=== PATIENT | male | born 2000 | race Two or more races ===

== ENCOUNTER 2023-05-01 19:03 | Emergency (ER) | payer OTHER ==
[~2023-05-01] VITALS: Ht 172.7 cm; Wt 95.5 kg
[2023-05-01 19:07] VITALS: TEMP 99
[2023-05-01] MEDS: IBUPROFEN 600 MG TABLET PO ONE (20:40)
[2023-05-01] MEDS: ACETAMINOPHEN 500 MG TABLET PO ONE (20:40)
[2023-05-01] MEDS ORDERED: ACET-3385 PO (20:41)
[2023-05-01] MEDS ORDERED: IBUP-1492 PO (20:41)
[2023-05-01 21:45] VITALS: BP 124/79; PULSE 73; RESP 20
== END 2023-05-01 21:55 | disposition home or self-care (01) ==
LOC: EMS 19:09
DX: S62.326A Displaced fracture of shaft of fifth metacarpal bone, right hand, initial encounter for closed fracture (principal); X58.XXXA Exposure to other specified factors, initial encounter; Y93.89 Activity, other specified; Y92.89 Other specified places as the place of occurrence of the external cause; Y99.8 Other external cause status
CPT/HCPCS: 99284; 73110-TC; 73130-TC; Z7502; Z7610

== ENCOUNTER 2023-05-10 23:18 | Emergency (ER) | payer OTHER ==
[~2023-05-10] VITALS: Ht 172.7 cm; Wt 105.0 kg
[~2023-05-10 23:18] MED LIST: ACET-3385 PO; IBUP-1492 PO
[2023-05-10 23:32] VITALS: BP 130/77; PULSE 71; RESP 18; TEMP 98.2
[2023-05-11] MEDS ORDERED: SULF-261 PO (00:07)
[2023-05-11] MEDS: SULFAMETHOX/TRIMETH DS 800-160 MG/TABLET PO ONE (00:12)
== END 2023-05-11 00:25 | disposition home or self-care (01) ==
LOC: EMS 23:19
DX: L03.114 Cellulitis of left upper limb (principal)
CPT/HCPCS: 99283

== ENCOUNTER 2023-05-29 08:19 | Emergency (ER) | payer OTHER ==
[~2023-05-29] VITALS: Ht 172.7 cm; Wt 97.7 kg
[~2023-05-29 08:19] MED LIST changes: +SULF-261 PO
[2023-05-29 08:23] VITALS: TEMP 98.4
[2023-05-29 09:38] VITALS: BP 128/79; PULSE 72; RESP 16
[2023-05-29] MEDS ORDERED: IBUP-1492 PO (09:43)
== END 2023-05-29 10:15 | disposition home or self-care (01) ==
LOC: EMS 08:22
DX: S62.614A Displaced fracture of proximal phalanx of right ring finger, initial encounter for closed fracture (principal); Z91.013 Allergy to seafood; Z87.891 Personal history of nicotine dependence; X58.XXXA Exposure to other specified factors, initial encounter; Y93.59 Activity, other involving other sports and athletics played individually; Y92.89 Other specified places as the place of occurrence of the external cause; Y99.8 Other external cause status
CPT/HCPCS: 99283

== ENCOUNTER 2024-01-23 08:55 | Emergency (ER) | payer OTHER ==
[~2024-01-23] VITALS: Ht 175.3 cm; Wt 90.0 kg
[~2024-01-23 08:55] MED LIST changes: -ACET-3385 PO; -SULF-261 PO
[2024-01-23 09:00] VITALS: BP 138/64; PULSE 104; RESP 20; TEMP 98.6; O2SAT 100
== END 2024-01-23 10:03 | disposition home or self-care (01) ==
LOC: EMS 08:55
DX: S92.101A Unspecified fracture of right talus, initial encounter for closed fracture (principal); Z87.891 Personal history of nicotine dependence; Z91.013 Allergy to seafood; Z86.19 Personal history of other infectious and parasitic diseases; Y93.39 Activity, other involving climbing, rappelling and jumping off; Y93.89 Activity, other specified; Y92.89 Other specified places as the place of occurrence of the external cause; Y99.8 Other external cause status
CPT/HCPCS: 99283